=== PATIENT | female | born 1945 | race Caucasian/White ===

== ENCOUNTER 2019-08-07 18:59 | Emergency (ER) | payer SELFPAY | END 2019-08-07 22:06 | disposition home or self-care (01) | LOC: E/R 18:59 | DX: R10.30 Lower abdominal pain, unspecified (principal) | CPT/HCPCS: 74176; 76830; 76856; 80053; 81003; 83690; 84484; 85025; 85610; 85730; 86850; 86900; 86901; 99284-25 ==